=== PATIENT | male | born 1985 | race African-American/Black ===

== ENCOUNTER 2022-10-18 10:01 | Emergency (ER) | payer OTHER, SELFPAY ==
[2022-10-18 10:04] VITALS: BP 139/96; PULSE 69; RESP 18; TEMP 36.8; O2SAT 99; BMI 30.9
--- NOTE | 2022-10-18 10:10 | ED.DENTAL ---
HPI - Dental/Oral General Chief complaint: Dental/Oral Stated complaint: dental issue Time Seen by Provider: 10/18/22 10:08 Source: patient Mode of arrival: ambulatory Limitations: no limitations History of Present Illness HPI Narrative: 37 yo male presenting with right sided upper dental pain for the last several days. He feels likely gums are swollen and he has pain running up into the right side of his face. He states he has a history of his posterior molar being cracked in the past. He feels like it is infected now. He does not have a dentist but called and made an appointment with the dental office for Thursday. He denies any neck swelling or oral swelling. He reports pain with opening his mouth all the way and chewing on the right side. No fevers. MD Complaint: tooth pain Location: Tooth # (1) Onset (ago): day(s) Duration: constant Severity: severe Severity scale (1-10): 10 Relieving factors: nothing Exacerbating factors: chewing Context: history of dental caries, trauma (mechanism) and poor dental care Associated symptoms: gum swelling Treatment prior to arrival: none Related Data Previous Rx's Medication Instructions Recorded chlorhexidine gluconate 0.12 % 15 ml buccal BID #118 mL 10/18/22 mouthwash (Peridex) ibuprofen 800 mg tablet 800 mg PO Q8H PRN fever or pain 10/18/22 #20 tabs penicillin V potassium 500 mg 500 mg PO Q8H 7 days #21 tabs 10/18/22 tablet tramadol 50 mg tablet 50 mg PO BID PRN severe pain 10/18/22 (scale score 7-10) #5 tabs Allergies Allergy/AdvReac Type Severity Reaction Status Date / Time No Known Allergies Allergy Verified 10/18/22 10:24 Review of Systems Review of Systems: Yes all other systems are reviewed and are negative PMFSH Social History Social History Advance Directives: No Advance Directives Information Provided: No Physical Exam Vital Signs: Vital Signs: Last Vital Signs Temp 98.3 F 10/18/22 10:04 Pulse 69 10/18/22 10:04 Resp 18 10/18/22 10:04 BP 139/96 H 10/18/22 10:04 Pulse Ox 99 10/18/22 10:04 O2 Del Method 10/18/22 10:04 BMI result Body Mass Index 30.9 Appearance: Alert. Oriented X3. No acute distress. HEENT: normocephalic, atraumatic, face is symmetrical. Oropharynx with moist mucous membranes. Poor dentition with multiple dental caries. Tooth 1 with trauma, crack to the surface of the gum with associated gingival swelling and tenderness. No fluctuance. No trismus. Neck: Normal inspection, no submandibular swelling. CVS: Normal heart rate and rhythm. Pulses normal. Respiratory: No respiratory distress. Skin: Skin warm and dry. Normal skin color. Normal skin turgor. No rashes. Extremities: Normal inspection x4 Neuro: Oriented X 3. grossly normal, nonfocal Course Course Course Narrative: 37-year-old male presents to the ER for evaluation of right-sided upper dental pain for the last several days. Exam is consistent with broken tooth, surrounding gingival erythema and tenderness, possible evolving dental abscess. No fluctuance palpated on exam today. He has an appointment dentist on Thursday. Will prescribe antibiotics, pain control for the weekend. He will follow-up with his dentist on Thursday. He is stable for discharge home. Medical Decision Making Differential Diagnosis Differential Diagnoses: The differential diagnosis associated with the presentation includes Toothache, dental mei, dental trauma, dental abscess, less likely lugwigs angina Independent Historian Clinical information obtained from an independent historian. History obtained from or confirmed by: Spouse Prescription Management I considered prescription management with: Pain Medication and Antibiotic Chronic Conditions Patient?s care impacted by: Other (poor dental care) Social Determinants Patient?s care significantly limited by Social Determinants of Health including: Alcoholism and drug addiction in family Critical Care Time Critical Care Time Critical Care Time: No Discharge Plan Discharge Clinical Impression: Toothache, Dental caries Patient Disposition: Home, Self-Care Instructions: Toothache (ED) Additional Instructions: Medications as prescribed. Follow-up with your dentist as scheduled on Thursday. Prescriptions: New penicillin V potassium 500 mg tablet 500 mg PO Q8H 7 Days Qty: 21 0RF ibuprofen 800 mg tablet 800 mg PO Q8H PRN (Reason: fever or pain) Qty: 20 0RF tramadol 50 mg tablet 50 mg PO BID PRN (Reason: severe pain (scale score 7-10)) Qty: 5 0RF chlorhexidine gluconate [Peridex] 0.12 % mouthwash 15 ml buccal BID Qty: 118 0RF
== END 2022-10-18 10:36 | disposition home or self-care (01) ==
PROVIDERS: Emergency Provider Student in an Organized Health Care Education/Training Program
DX: K08.89 Other specified disorders of teeth and supporting structures (principal); K02.9 Dental caries, unspecified
CPT/HCPCS: 99282; 99283